=== PATIENT | male | born 1950 | race Caucasian/White ===

== ENCOUNTER → 2016-10-28 | Outpatient (CLI) | payer MEDICARE ==
--- NOTE | 2016-10-28 21:53 | MR ---
EXAMINATION TYPE: MR knee LT wo con DATE OF EXAM: 10/28/2016 COMPARISON: NONE HISTORY: Left Knee pain with swelling x1 month TECHNIQUE: Multiplanar, multisequence imaging of the left knee is performed without IV contrast. FINDINGS: MEDIAL MENISCUS: There are changes of osteoarthritis with abnormal signal grade 3 involving the body and posterior horn medial meniscus compatible with tear. 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 LATERAL MENISCUS: There is grade 3 abnormal signal involving the posterior horn lateral meniscus comp atible with tear. CRUCIATE LIGAMENTS: Posterior cruciate ligament intact. There is laxity of the anterior cruciate liga ment with areas of poorly defined ligamentous fibers suggestive of partial tear. Correlate clinically . COLLATERAL LIGAMENTS: The medial collateral ligament and lateral collateral ligament complex are inta ct and unremarkable. EXTENSOR MECHANISM: Visualized quadriceps and patellar tendons are intact. Narrowing of the patellofe moral joint noted with evidence of chondromalacia. Grade III chondromalacia noted and there is a smal l amount of fluid in the suprapatellar bursa. Retinaculum intact. EFFUSION: No significant suprapatellar joint effusion. POPLITEAL CYST: 0.6 x 1.4 x 2.4 cm popliteal fossa cyst. BONE MARROW SIGNAL: Cystic changes are noted involving the proximal tibia likely post arthritic. There also is an intraosseous lesion involving the distal diaphysis of the femur measuring 1.2 cm whi ch could be correlated with x-ray. Likely on the basis of a chondroid lesion or bone infarct. Marrow edema involving the posterior tibia along the medial plateau likely reactive secondary to oste oarthritis with bone marrow edema and meniscal tear. IMPRESSION: 1. Osteoarthritis involving the tricompartment spaces. 2. Complex tear posterior horn medial meniscus. 3. Posterior horn lateral meniscal tear. 4. Intraosseous lesion distal diaphysis of the femur most likely in the basis of a bone infarct or ch ondroid lesion correlate with x-ray. 5. Laxity of the ACL may partially be related to positioning. Poor definition posterior fibers are castelan spicious for tear correlate clinically.
== END | disposition home or self-care (01) ==
LOC: RADMRIMAIN 21:01
PROVIDERS: ATTEND Orthopaedic Surgery
DX: S83.232A Complex tear of medial meniscus, current injury, left knee, initial encounter (principal); S83.282A Other tear of lateral meniscus, current injury, left knee, initial encounter; M17.12 Unilateral primary osteoarthritis, left knee; M89.9 Disorder of bone, unspecified

== ENCOUNTER → 2020-03-07 | Outpatient (CLI) | payer MEDICARE ==
--- NOTE | 2020-03-09 07:11 | MR ---
EXAMINATION TYPE: MR lumbar spine wo con DATE OF EXAM: 03/07/2020 COMPARISON: Outside lumbar spine MRI September 07, 2017. Lumbar spine intraoperative outside x-rays August. HISTORY: Low back and bilateral hip pain rule out stenosis. Pain for 2.5 years per patient. TECHNIQUE: Multiplanar, multisequence imaging of the lumbar spine is performed without IV contrast. FINDINGS: Sagittal images of the lumbar spine show artifact from vertebroplasty at L1 and L2 levels w here there is stable mild height loss estimated near 25%. Alignment is satisfactory and stable. Multi level disc desiccation redemonstrated with mild height loss involving the L3-L4 disc space. The conu s medullaris remains normal in position and signal ending inferior L1 level. Mild to moderate multil evel anterior spurring redemonstrated. The bone marrow signal intensity remains within normal limits. Axial images at T12-L1 level show stable mild facet degenerative changes and ligamentum flavum hypert rophy. Axial images at L1-L2 level demonstrate mild to moderate broad disc bulge and mild facet degenerative changes and ligamentum flavum hypertrophy, mild effacement of the anterior and posterior lateral the taylor sac is redemonstrated. Stable minimal bilateral anterior inferior neural foraminal narrowing. Axial images at L2-L3 level redemonstrate mild facet degenerative changes bilaterally. Spinal canal i s preserved. Patent bilateral neural foramina. Axial images at the L3-L4 level redemonstrate moderate broad disc bulge and facet degenerative change s and ligamentum flavum hypertrophy causing prominent spinal canal effacement or stenosis on image 16 . There is stable moderate bilateral anterior inferior neural foraminal narrowing. Axial images at L4-L5 level redemonstrated moderate to advanced facet degenerative changes bilaterall y with moderate broad disc bulge and central disc protrusion component effacing anterior thecal sac a nd causing mild to moderate right greater than left bilateral anterior inferior neural foraminal narr owing. No significant change from prior. Axial images at the L5-S1 level we demonstrate [id number] facet degenerative changes and ligame ntum flavum hypertrophy. There is broad disc bulge with central disc protrusion component. Spinal can al is preserved. Patent bilateral neural foramina. Some cortical thinning with simple appearing thin-walled subcentimeter cysts in both kidneys consiste nt with product of chronic medical renal disease is redemonstrated. IMPRESSION: Interval vertebroplasty at L1 and L2 levels with stable and satisfactory alignment. Multi level degenerative changes greatest at L3-L4 and L4-L5 levels redemonstrated. No significant interval progression from outside MRI.
== END | disposition home or self-care (01) ==
LOC: RADMRIMAIN 11:30
PROVIDERS: ATTEND Orthopaedic Surgery
DX: M47.816 Spondylosis without myelopathy or radiculopathy, lumbar region (principal); Z98.890 Other specified postprocedural states
CPT/HCPCS: 72148

== ENCOUNTER → 2022-02-21 | Outpatient (CLI) | payer MEDICARE ==
--- NOTE | 2022-02-21 15:32 | MR ---
EXAMINATION TYPE: MR knee LT wo con DATE OF EXAM: 02/21/2022 COMPARISON: NONE HISTORY: Left Knee pain. Tear of medial meniscus. Recent injury January 17. History of prior surgery . TECHNIQUE: Multiplanar, multisequence images of the knee is performed without IV contrast. FINDINGS: MEDIAL MENISCUS: There is a defect involving the central body of the medial meniscus and portion of t he posterior horn. Subtle horizontal and oblique increased signal from the posterior horn extends to the inferior articular surface sagittal image 27. LATERAL MENISCUS: Anterior and posterior horns are intact without tear. CRUCIATE LIGAMENTS: The posterior cruciate ligament is intact and unremarkable. Anterior cruciate lig ament is intact with increased signal. COLLATERAL LIGAMENTS: The medial collateral ligament and lateral collateral ligament complex are inta ct and unremarkable. EXTENSOR MECHANISM: Visualized quadriceps and patellar tendons are intact. EFFUSION: Small size suprapatellar joint effusion. POPLITEAL CYST: Small to moderate-size multiseptated popliteal/zapien cyst. TRICOMPARTMENT SPACES: Tricompartment joint space loss being moderate to severe patellofemoral compar tment. Mild to moderate tricompartment spurring. Moderate-sized spur from the medial aspect of the pr oximal tibial metaphysis coronal image 23. CARTILAGE: Chondromalacia patella with significant cartilaginous loss along the posterior patellar po le. BONE MARROW SIGNAL: Areas of heterogeneous increased T2 signal along the posterior lateral aspect of the patella. OTHER: No additional significant abnormality is appreciated. IMPRESSION: 1. Tricompartment degenerative changes which are moderate to severe in appearance and the patellofemo ral compartment as detailed above. 2. Suspected prior partial meniscectomy of the medial meniscus. Full-thickness oblique tear suspected in the remnant posterior horn. 3. 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 No full thickness retracted tear. 4. Small sized suprapatellar joint effusion. 5. Small to moderate size lobulated popliteal cyst.
== END | disposition home or self-care (01) ==
LOC: RADMRIMAIN 14:40
PROVIDERS: ATTEND Orthopaedic Surgery
DX: S83.242A Other tear of medial meniscus, current injury, left knee, initial encounter (principal); M17.12 Unilateral primary osteoarthritis, left knee; M25.462 Effusion, left knee; M71.22 Synovial cyst of popliteal space [Baker], left knee

== ENCOUNTER → 2024-05-13 | Outpatient (CLI) | payer MEDICARE ==
--- NOTE | 2024-05-13 15:15 | US ---
EXAMINATION TYPE: US venous doppler duplex LE BI DATE OF EXAM: 05/13/2024 2:50 PM COMPARISON: NONE CLINICAL INDICATION: Male, 74 years old with history of R60.0 LOCALIZED EDEMA; BL LE Swelling; Multip le falls on ice in April, brawny discoloration to BL LE, and HX HTN , Pain TECHNIQUE: The lower extremity deep venous system is examined utilizing real time linear array sonog aiyana with graded compression, color doppler sonography, and spectral doppler. SIDE PERFORMED: Bilateral FINDINGS: VESSELS IMAGED: Common Femoral Vein Deep Femoral Vein Greater Saphenous Vein * Femoral Vein Popliteal Vein Small Saphenous Vein * Proximal Calf Veins (* superficial vessels) Right Leg: Negative for DVT, Color Doppler imaging shows patency of the vessels. Spectral waveforms are within normal limits. Left Leg: Negative for DVT, Color Doppler imaging shows patency of the vessels. Spectral waveforms a re within normal limits. IMPRESSION: No ultrasound evidence for deep venous thrombosis. [facility], , 05/13/2024 3:13 PM
== END | disposition home or self-care (01) ==
LOC: RADUSWWP 14:31
PROVIDERS: ATTEND Internal Medicine
DX: I10 Essential (primary) hypertension (principal); R60.0 Localized edema; W19.XXXA Unspecified fall, initial encounter; Z85.72 Personal history of non-Hodgkin lymphomas
CPT/HCPCS: 93970